=== PATIENT | male | born 1965 | race Caucasian/White ===

== ENCOUNTER 2022-08-10 13:59 | Emergency (ER) | payer BC ==
[~2022-08-10] VITALS: Ht 170.2 cm; Wt 79.4 kg
[2022-08-10 14:14] VITALS: BP 139/90
--- NOTE | 2022-08-10 15:00 | NUR ---
SEEN AND EVALUATED BY DR WYNN.
--- NOTE | 2022-08-10 15:30 | NUR ---
Patient discharged to home in stable condition. Written and verbal after care instructions given. Patient verbalizes understanding of instruction.
== END 2022-08-10 15:47 | disposition home or self-care (01) ==
LOC: ER 14:07
DX: S01.21XA Laceration without foreign body of nose, initial encounter (principal); I10 Essential (primary) hypertension; E78.5 Hyperlipidemia, unspecified; Z88.8 Allergy status to other drugs, medicaments and biological substances; W22.8XXA Striking against or struck by other objects, initial encounter; Y93.89 Activity, other specified; Y92.89 Other specified places as the place of occurrence of the external cause; Y99.8 Other external cause status